=== PATIENT | female | born 1960 | race Caucasian/White ===

== ENCOUNTER 2024-09-29 01:39 | Inpatient (IN) | payer SELFPAY ==
[2024-09-29] MEDS ORDERED: NA CHLORIDE 0.9% 1,000 ML ONE (02:10)
[2024-09-29] MEDS ORDERED: CEFTRIAXONE 1000 MG/VIAL ONE (02:10)
[2024-09-29] MEDS ORDERED: NA CHLORIDE 0.9% 50 ML ONE (02:10)
[2024-09-29 02:21] LABS: Absolute Basophils 0.1 K/uL (0-0.5); Absolute Eosinophils 0.2 K/uL (0-0.5); Absolute Lymphocytes (CBC) 2.8 K/uL (0.7-4.9); Absolute Monocytes 0.7 K/uL (0.1-1.3); Absolute Neutrophil 6.6 K/uL (1.8-8.0); Basophils % 1.1 % (0-1.3); Eosinophils % 1.6 % (0-4.4); Hematocrit 41.4 % (36.0-45.0); Hemoglobin 13.5 g/dL (12.0-15.0); Lymphocytes % 27.2 % (15.3-44.8); MCH 29.7 pg (27.0-35.0); MCHC 32.7 g/dL (32.0-36.0); MCV 90.8 fL (80-100); MPV 8.7 fL (7.6-11.3); Monocytes % 6.6 % (3.3-12.3); Neutrophils % 63.5 % (41.7-73.7); Nucleated Red Blood Cells % 0.1 % (0-0); Platelets 280 thou/uL (152-406); RBC Red Blood Cell Count 4.56 M/uL (3.86-4.86); Red Cell Distribution Width 17.3 % (12.1-15.2)
[2024-09-29 02:23] LABS: PT Prothrombin Time 11.6 SECONDS (9.4-12.5); PTT, Activated Partial Thromb 28.6 SECONDS (24.3-36.9); Protime INR 1.04
[2024-09-29 02:30] LABS: SARS-CoV-2 Antigen CONTROL BLUE LINE VIS/BG OK; SARS-CoV-2 Antigen Rapid Res Negative (Negative)
[2024-09-29 02:36] LABS: Albumin 2.8 g/dL (3.4-5.0); Albumin/Globulin Ratio 0.8 (1.1-1.8); Anion Gap 11.2 mEq/L (5.0-15.0); Bilirubin Total 0.6 mg/dL (0.2-1.0); Globulin 3.7 g/dL (2.3-3.5); Potassium 3.2 mEq/L (3.5-5.1); Protein, Total 6.5 g/dL (6.4-8.2)
--- NOTE | 2024-09-29 03:19 | ER ---
Nurse's Notes [facility] Name: Bertha Hendricks Age: 63 yrs Sex: Female : 1960 Arrival Date: 09/29/2024 Time: 01:39 Bed 3 Private MD: Diagnosis: Volume Overload;Dyspnea, unspecified Presentation: 09/29 01:46 Chief complaint: Patient states: shortness of breath x 1 week. Coronavirus screen: cp4 Client denies travel out of the [place] in the last 14 days. At this time, the client does not indicate any symptoms associated with coronavirus-19. Ebola Screen: Patient negative for fever greater than or equal to 101.5 degrees Fahrenheit, and additional compatible Ebola Virus Disease symptoms Patient denies exposure to infectious person. Patient denies travel to an Ebola-affected area in the 21 days before illness onset. No symptoms or risks identified at this time. Initial Sepsis Screen: Does the patient meet any 2 criteria? RR > 20 per min. HR > 90 bpm. Yes Does the patient have a suspected source of infection? No. Patient's initial sepsis screen is negative. Risk Assessment: Do you want to hurt yourself or someone else? Patient reports no desire to harm self or others. Onset of symptoms was September 21, 2024. 01:46 Method Of Arrival: Wheelchair cp4 01:46 Acuity: ALEJANDRO 2 cp4 Triage Assessment: 01:49 General: Appears distressed, uncomfortable, Behavior is calm, cooperative, appropriate cp4 for age. Pain: Denies pain. EENT: No signs and/or symptoms were reported regarding the EENT system. Neuro: Level of Consciousness is awake, alert, obeys commands, Oriented to person, place, time, situation. Cardiovascular: Patient's skin is warm and dry. Rhythm is sinus tachycardia. Respiratory: Reports shortness of breath at rest since 1 week Airway is patent Respiratory effort is labored, gasping, shallow, Breath sounds with crackles bilaterally. Onset: The symptoms/episode began/occurred 1 week ago, the patient has moderate shortness of breath. GI: No signs and/or symptoms were reported involving the gastrointestinal system. : No signs and/or symptoms were reported regarding the genitourinary system. Derm: No signs and/or symptoms reported regarding the dermatologic system. Musculoskeletal: No signs and/or symptoms reported regarding the musculoskeletal system. Historical: - Allergies: 01:49 No Known Allergies; cp4 - Immunization history:: Adult Immunizations unknown. - Infectious Disease History:: Denies. - Social history:: Smoking status: Patient reports the use of cigarette tobacco products, smokes one pack cigarettes per day. Screenin:53 [facility] ED Fall Risk Assessment (Adult) History of falling in the last 3 months, cp4 including since admission No falls in past 3 months (0 pts) Confusion or Disorientation No (0 pts) Intoxicated or Sedated No (0 pts) Impaired Gait No (0 pts) Mobility Assist Device Used No (0 pt) Altered Elimination No (0 pt) Score/Fall Risk Level 0 - 2 = Low Risk Oriented to surroundings, Maintained a safe environment, Assessed \T\ reinforced patient's understanding of fall precautions, Hourly rounding (assess needs \T\ fall precautionary measures) done. Abuse screen: Denies threats or abuse. Denies injuries from another. Nutritional screening: No deficits noted. Tuberculosis screening: No symptoms or risk factors identified. Assessment: 01:53 Reassessment: No changes from previously documented assessment. Cardiovascular: Reports cp4 shortness of breath, Denies chest pain, Patient's skin is warm and dry. Rhythm is sinus tachycardia. 03:00 Reassessment: Patient appears in no apparent distress at this time. Patient and/or cp4 family updated on plan of care and expected duration. Pain level reassessed. Patient is alert, oriented x 3, equal unlabored respirations, skin warm/dry/pink. 04:00 Reassessment: Patient appears in no apparent distress at this time. Patient and/or cp4 family updated on plan of care and expected duration. Pain level reassessed. Patient is alert, oriented x 3, equal unlabored respirations, skin warm/dry/pink. 05:00 Reassessment: Patient appears in no apparent distress at this time. Patient and/or cp4 family updated on plan of care and expected duration. Pain level reassessed. Patient is alert, oriented x 3, equal unlabored respirations, skin warm/dry/pink. Vital Signs: 01:46 BP 174 / 122; Pulse 133; Resp 44; Temp 97.1; Pulse Ox 98% ; Weight 43.09 kg; Height 5 cp4 ft. 6 in. ; Pain 0/10; 02:11 BP 158 / 113; Pulse 108; ec2 02:15 BP 147 / 105; Pulse 101; Resp 24; Pulse Ox 98% on 2 lpm NC; al5 02:30 BP 143 / 105; Pulse 104; Resp 22; Pulse Ox 98% on 2 lpm NC; al5 02:45 BP 143 / 102; Pulse 104; Resp 25; Pulse Ox 98% on 2 lpm NC; al5 02:57 BP 143 / 102; Pulse 103; ec2 03:00 BP 140 / 103; Pulse 97; Resp 25; Pulse Ox 99% on 2 lpm NC; al5 03:30 BP 160 / 104; Pulse 113; Resp 19; Pulse Ox 99% on 2 lpm NC; al5 04:00 BP 136 / 106; Pulse 104; Resp 20; Pulse Ox 98% on 2 lpm NC; al5 04:15 BP 141 / 98; Pulse 105; Resp 23; Pulse Ox 99% on 2 lpm NC; al5 04:30 BP 144 / 97; Pulse 105; Resp 25; Pulse Ox 98% on 2 lpm NC; al5 05:00 BP 142 / 102; Pulse 108; Resp 25; Pulse Ox 99% on 2 lpm NC; al5 05:30 BP 140 / 98; Pulse 104; Resp 22; Pulse Ox 97% on 2 lpm NC; al5 01:46 Body Mass Index 15.33 (43.09 kg, 167.64 cm) cp4 01:46 Pain Scale: Adult cp4 ED Course: 01:40 Patient arrived in ED. jj6 01:41 Xu Murillo MD is Attending Physician. ec2 01:45 Jia Daniel is Primary Nurse. cp4 01:49 Triage completed. cp4 01:49 Arm band placed on right wrist. Patient placed in an exam room, on a stretcher. cp4 01:53 Bed in low position. Call light in reach. Side rails up X2. cp4 01:53 No provider procedures requiring assistance completed. Inserted saline lock: 20 gauge cp4 in right antecubital area, using aseptic technique. Blood collected. Flushed with 10 mL NS. 01:56 Initial lab(s) drawn, by ED staff, sent to lab. First set of blood cultures drawn by ED cp4 staff, Second set of blood cultures drawn by ED staff. 02:00 Provided Education on: plan of care. al5 02:12 Chest Single View XRAY In Process Unspecified. EDMS 03:18 Tonio Parker MD is Hospitalizing Provider. ec2 04:40 Patient admitted, IV remains in place. al5 Administered Medications: 02:17 Drug: NS 0.9% IV 1000 ml IV at 1000 ml once; to be given as a bolus over 60 minutes cp4 Route: IV; Rate: 1000 ml; Site: right antecubital; 03:27 Follow up: IV Status: Completed infusion cp4 02:17 Drug: Rocephin IV 1 grams IV at calculated rate once; Given slow IV push per pharmacy cp4 instructions Route: IV; Rate: calculated rate; Site: right antecubital; 03:27 Follow up: IV Status: Completed infusion cp4 03:41 Drug: Potassium Chloride PO 40 mEq PO once Route: PO; cp4 04:41 Follow up: Response: No adverse reaction al5 03:41 Not Given (Patient Refused): potassium [id number] meq IV at calculated rate once; cp4 administer over 1-2 hours Medication: 01:53 VIS not applicable for this client. cp4 Outcome: 03:18 Decision to Hospitalize by Provider. ec2 06:58 Admitted to ER Hold. Please see [facility] for further documentation. cp4 06:58 Condition: stable 06:58 Instructed on the need for admit, 07:58 Patient left the ED. db Signatures: Dispatcher [employer] EDNJ Joyce Robertson jj6 Naina Mayorga RN RN db Xu Murillo MD MD ec2 Jia Daniel cp4 Soledad Anne RN RN al5 Corrections: (The following items were deleted from the chart) 01:49 01:49 PMHx: Anxiety; cp4 cp4
--- NOTE | 2024-09-29 03:19 | EDPHYS ---
Physician Documentation [facility] Name: Bertha Hendricks Age: 63 yrs Sex: Female : 1960 Arrival Date: 09/29/2024 Time: 01:39 Bed 3 Private MD: ED Physician Xu Murillo HPI: 09/29 02:15 This 63 yrs old Female presents to ER via Wheelchair with complaints of ec2 Breathing Difficulty. 02:15 Patient arrives today for shortness of breath. Patient reports that she has been having ec2 worsening cough and cold symptoms, states that she is a pack per day smoker. No diagnosis of COPD. Has been feeling unwell and progressively worse.. Historical: - Allergies: 01:49 No Known Allergies; cp4 - Immunization history:: Adult Immunizations unknown. - Infectious Disease History:: Denies. - Social history:: Smoking status: Patient reports the use of cigarette tobacco products, smokes one pack cigarettes per day. ROS: 02:16 Constitutional: as per hpi ec2 Exam: 02:16 Constitutional: GEN: NAD Head: atraumatic Eyes: EOMI Ears: External ears are ec2 normal. CV: Tachycardia LUNGS: Tachypnea ABD: non-distended SKIN: no evidence of rashes MSK: no evidence of trauma Vital Signs: 01:46 BP 174 / 122; Pulse 133; Resp 44; Temp 97.1; Pulse Ox 98% ; Weight 43.09 kg; Height 5 cp4 ft. 6 in. ; Pain 0/10; 02:11 BP 158 / 113; Pulse 108; ec2 02:15 BP 147 / 105; Pulse 101; Resp 24; Pulse Ox 98% on 2 lpm NC; al5 02:30 BP 143 / 105; Pulse 104; Resp 22; Pulse Ox 98% on 2 lpm NC; al5 02:45 BP 143 / 102; Pulse 104; Resp 25; Pulse Ox 98% on 2 lpm NC; al5 02:57 BP 143 / 102; Pulse 103; ec2 03:00 BP 140 / 103; Pulse 97; Resp 25; Pulse Ox 99% on 2 lpm NC; al5 03:30 BP 160 / 104; Pulse 113; Resp 19; Pulse Ox 99% on 2 lpm NC; al5 04:00 BP 136 / 106; Pulse 104; Resp 20; Pulse Ox 98% on 2 lpm NC; al5 04:15 BP 141 / 98; Pulse 105; Resp 23; Pulse Ox 99% on 2 lpm NC; al5 04:30 BP 144 / 97; Pulse 105; Resp 25; Pulse Ox 98% on 2 lpm NC; al5 05:00 BP 142 / 102; Pulse 108; Resp 25; Pulse Ox 99% on 2 lpm NC; al5 05:30 BP 140 / 98; Pulse 104; Resp 22; Pulse Ox 97% on 2 lpm NC; al5 01:46 Body Mass Index 15.33 (43.09 kg, 167.64 cm) cp4 01:46 Pain Scale: Adult cp4 MDM: 01:41 Medical Screening Exam initiated ec2 02:11 ED course: EKG independently reviewed and interpreted by me, shows sinus tachycardia, ec2 rate of 119, no acute ST segment elevations, intervals are nonactionable.. 02:16 Data reviewed: vital signs, nurses notes. ED course: Patient arrives today for ec2 evaluation of shortness of breath. Examination yields tachycardia and tachypnea. Will obtain a septic workup, empirically treat with ceftriaxone, crystalloid. Differential diagnoses include processes such as pneumonia, viral infection, COPD exacerbation. 02:37 ED course: Metabolic profile shows slight hypokalemia.. ec2 03:18 ED course: Metabolic profile shows hypokalemia. BNP elevated at 40,000. I suspect this ec2 is contributing to patient's reported shortness of breath. No documented history of CHF however patient does not regularly seek health care. Will admit for further cardiac workup, tachypnea, shortness of breath. Discussed with hospitalist, pending admission.. 09/29 01:45 Order name: Blood Culture Adult (2) ec2 09/29 01:45 Order name: CBC with Diff; Complete Time: 02:48 ec2 09/29 01:45 Order name: CMP; Complete Time: 02:36 ec2 09/29 01:45 Order name: Lactate w/ 2H reflex if indic.; Complete Time: 02:48 ec2 09/29 01:45 Order name: Protime (+inr); Complete Time: 02:36 ec2 09/29 01:45 Order name: Ptt, Activated; Complete Time: 02:36 ec2 09/29 01:45 Order name: Influenza Screen (a \T\ B); Complete Time: 02:36 ec2 09/29 01:45 Order name: SARS RAPID; Complete Time: 02:48 ec2 09/29 01:49 Order name: BNP; Complete Time: 03:15 ec2 09/29 02:21 Order name: Glucose, Ancillary Testing; Complete Time: 02:36 EDMS 09/29 05:39 Order name: CBC with Automated Diff EDMS 09/29 05:39 Order name: CBC with Automated Diff EDMS 09/29 05:39 Order name: Comprehensive Metabolic Panel EDMS 09/29 05:39 Order name: Comprehensive Metabolic Panel EDMS 09/29 01:45 Order name: Chest Single View XRAY; Complete Time: 05:08 ec2 09/29 05:39 Order name: Thorax Wo Con EDMS 09/29 05:39 Order name: Echo with Doppler EDMS 09/29 01:45 Order name: Accucheck; Complete Time: 02:03 ec2 09/29 01:45 Order name: Cardiac monitoring; Complete Time: 02:03 ec2 09/29 01:45 Order name: EKG - Nurse/Tech; Complete Time: 02:03 ec2 09/29 01:45 Order name: IV Saline Lock - Large Bore; Complete Time: 02:03 ec2 09/29 01:45 Order name: Labs collected and sent; Complete Time: 02:03 ec2 09/29 01:45 Order name: O2 Per Protocol; Complete Time: 02:03 ec2 09/29 01:45 Order name: O2 Sat Monitoring; Complete Time: 02:03 ec2 09/29 01:45 Order name: Vital Signs; Complete Time: 02:03 ec2 Administered Medications: 02:17 Drug: NS 0.9% IV 1000 ml IV at 1000 ml once; to be given as a bolus over 60 minutes cp4 Route: IV; Rate: 1000 ml; Site: right antecubital; 03:27 Follow up: IV Status: Completed infusion cp4 02:17 Drug: Rocephin IV 1 grams IV at calculated rate once; Given slow IV push per pharmacy cp4 instructions Route: IV; Rate: calculated rate; Site: right antecubital; 03:27 Follow up: IV Status: Completed infusion cp4 03:41 Drug: Potassium Chloride PO 40 mEq PO once Route: PO; cp4 04:41 Follow up: Response: No adverse reaction al5 03:41 Not Given (Patient Refused): potassium [id number] meq IV at calculated rate once; cp4 administer over 1-2 hours Disposition: 03:18 Critical Care:. ec2 Disposition Summary: 09/29/24 03:18 Hospitalization Ordered Notes: Provider: Tonio Parker ec2 Condition: Stable ec2 Problem: new ec2 Symptoms: have improved ec2 Bed/Room Type: Standard ec2 Hospitalization Status: Inpatient Admission(09/29/24 06:44) af3 Location: Telemetry/MedSurg (Inpatient)(09/29/24 06:44) af3 Room Assignment: 430(09/29/24 06:44) af3 Diagnosis - Volume Overload ec2 - Dyspnea, unspecified ec2 Forms: - Medication Reconciliation Form ec2 - SBAR form ec2 - Leadership Thank You Letter ec2 Critical care time excluding procedures: 03:18 Critical care time: Bedside Care: 30 minutes, Consultation: 5 minutes. Total time: 35 ec2 minutes Signatures: Dispatcher [employer] EDCA Melani Thorne RN RN vc1 Xu Murillo MD MD ec2 Jia Daniel cp4 Lien Cantu af3 Soledad Anne RN al5 Corrections: (The following items were deleted from the chart) 01:45 01:45 BLOOD CULTURE*+BA.LAB.BRZ ordered. EDCA EDMS 01:45 01:45 CBC+H.LAB.BRZ ordered. EDCA EDMS 01:45 01:45 COMPREHENSIVE METABOLIC PANEL+C.LAB.BRZ ordered. EDCA EDMS 01:45 01:45 LACTATE+C.LAB.BRZ ordered. EDCA EDMS 01:45 01:45 PROTIME (+INR)+COAG.LAB.BRZ ordered. EDMS EDMS 01:45 01:45 PTT, ACTIVATED+COAG.LAB.BRZ ordered. EDCA EDMS 01:45 01:45 Influenza Screen (A \T\ B)+BA.LAB.BRZ ordered. EDMS EDMS 01:45 01:45 SARS-COV-2 Antigen Rapid+I.LAB.BRZ ordered. EDCA EDMS 01:45 01:45 Chest Single View+RAD.RAD.BRZ ordered. EDCA EDMS 01:49 01:49 PMHx: Anxiety; cp4 cp4 03:52 03:18 Telemetry/MedSurg (Inpatient) ec2 vc1 03:52 03:18 ec2 vc1 06:44 03:18 Inpatient Admission ec2 af3 06:44 03:52 [facility] ER HOLD vc1 af3 06:44 03:52 ERHOLD- vc1 af3
[2024-09-29] MEDS ORDERED: POTASSIUM CL SA 10 MEQ TAB PO ONE (03:35)
[2024-09-29] MEDS ORDERED: NA CHLORIDE 0.9% 0 ML ONE (03:36)
[2024-09-29] MEDS ORDERED: KCL 20 MEQ/100 mL IVPB 0 ML IV ONE (03:36)
--- NOTE | 2024-09-29 03:41 | RAD REPORT ---
EXAM: XR Chest, 1 View CLINICAL HISTORY: COUGH TECHNIQUE: Frontal view of the chest. COMPARISON: No relevant prior studies available. FINDINGS: Lungs: Hyperinflation. Coarsened interstitial markings. Patchy bibasilar opacities. Pleural space: Small to moderate bilateral pleural effusions. No pneumothorax. Heart: Unremarkable. No cardiomegaly. Mediastinum: Unremarkable. Normal mediastinal contour. Bones/joints: Unremarkable. No acute fracture. Vasculature: Thoracic aortic atherosclerosis. IMPRESSION: Small to moderate bilateral pleural effusions are likely underlying consolidation (atelectasis and/or infiltrate). Electronically signed by: Monica Donovan MD 09/29/2024 03:30 AM [facility] Due to temporary technical issues with the PACS/YouTube reporting system, reports are being noemy d by the in-house radiologist without review as a courtesy to ensure prompt reporting the interpreting radiologist is fully responsible for the content of the report. Transcribed Date/Time: 09/29/2024 3:41 AM
[2024-09-29] MEDS: FUROSEMIDE 20 MG/ 2ML VIAL IV SCH (05:34)
[2024-09-29] MEDS ORDERED: ALBUTEROL 2.5 MG/3 ML NEB SOL NEB PRN (05:34)
--- NOTE | 2024-09-29 05:34 | P.HP ---
Certification for Inpatient With expected LOS: >2 Midnights Practitioner: I am a practitioner with admitting privileges, knowledge of patient current condition, hospital course, and medical plan of care. Services: Services provided to patient in accordance with Admission requirements found in Title 42 Section 412.3 of the Code of Federal Regulations Patient History Date of Service: 09/29/24 Reason for admission: Congestive heart failure possible underlying COPD hoarseness History of Present Illness: Patient is 63 years of age with no past medical history she does not see any physicians started having worsening dyspnea since Jessu progressively worse also complaining of a chronic cough she has been hoarse for the past 6 months has lower extremity edema and was admitted from the emergency room denies any fever or chills take any medication at home Allergies No Known Allergies Allergy (Verified 03/16/17 03:12) Home Medications: Albuterol Inhaler [Ventolin Inhaler*] 2 puff IH Q6H PRN #1 hfa.aer.ad 03/17/17 Cefuroxime [Ceftin] 250 mg PO BID #6 tab 03/17/17 Sumatriptan [Imitrex*] 25 mg PO Q2H PRN #30 tab 03/17/17 Topiramate [Topamax*] 25 mg PO BID #60 tab 03/17/17 - Past Medical/Surgical History Diabetic: No -: anxiety -: tubal ligation - Family History Father -: Cancer - Social History Smoking Status: Current every day smoker Alcohol use: No CD- Drugs: No Caffeine use: Yes Review of Systems 10-point ROS is otherwise unremarkable Physical Examination - Vital Signs Temperature: 97.1 F Blood Pressure: 143/102 Pulse: 103 Respirations: 14 Pulse Ox (%): 98 - Physical Exam General: Alert, Oriented x3 HEENT: Atraumatic Neck: Supple Respiratory: Clear to auscultation bilaterally, Diminished Cardiovascular: Regular rate/rhythm, Normal S1 S2, Edema Gastrointestinal: Normal bowel sounds, Soft and benign Musculoskeletal: No clubbing, Swelling Neurological: Normal speech, Normal strength at 5/5 x4 extr - Studies Laboratory Data (last 24 hrs) 09/29/24 09/29/24 09/29/24 01:56 01:56 01:56 WBC 10.40 Hgb 13.5 Hct 41.4 Plt Count 280 PT 11.6 INR 1.04 APTT 28.6 Sodium 139 Potassium 3.2 L BUN 17 Creatinine 0.90 Glucose 139 H Total Bilirubin 0.6 AST 29 ALT 56 Alkaline Phosphatase 102 Microbiology Data (last 24 hrs): 09/29/24 01:56 Nasopharnyx Influenza Type A Antigen Screen - Final 09/29/24 01:56 Nasopharnyx Influenza Type B Antigen Screen - Final Assessment and Plan - Problems (Diagnosis) (1) Congestive heart failure Current Visit: Yes Status: Acute Plan: Patient is 63 years of age with no prior medical history heavy smoker admitted with worsening dyspnea since Jesus lower extremity edema cough hoarseness for the past 6 months patient's BNP has been significantly elevated patient is also mildly hypokalemic pressure is elevated x-ray shows hyperinflation bilateral pleural effusions will admit patient for diuresis she will also need a CT scan of the chest bili underlying COPD patient on Lasix spironolactone echocardiogram ordered Qualifiers: Heart failure chronicity: unspecified (2) Hoarseness Current Visit: Yes Status: Acute Plan: Patient is been hoarse for the past 6 months will need a CT scan of the neck and chest patient to ENT evaluation (3) Epigastric pain Current Visit: Yes Status: Acute - Plan Has also been complaining of some epigastric discomfort for the past 1 to 2 days denies any dysphagia no prior history of peptic ulcer disease - Advance Directives Does patient have a Living Will: No Does patient have a Durable POA for Healthcare: No
[2024-09-29] MEDS: SPIRONOLACTONE 25 MG TABLET PO SCH (05:37)
[2024-09-29] MEDS: PANTOPRAZOLE 40MG TABLET PO SCH (05:40)
[2024-09-29] MEDS ORDERED: FUROSEMIDE 20 MG/ 2ML VIAL ONE (06:40)
[2024-09-29] MEDS ORDERED: SPIRONOLACTONE 25 MG TABLET ONE (06:45)
[2024-09-29] MEDS ORDERED: PANTOPRAZOLE 40MG TABLET PO ONE (06:49)
[2024-09-29] MEDS: IPRATROPIUM BROM 0.5MG/2.5ML NEB SCH (07:20)
[2024-09-29] MEDS ORDERED: IPRATROPIUM BROM 0.5MG/2.5ML ONE (07:29)
--- NOTE | 2024-09-29 08:38 | RAD REPORT ---
EXAMINATION: CT Thorax Wo Con CLINICAL INDICATION: Female, 63 years old. [facility] MAIN Hoarseness Y TECHNIQUE: Axial CT scan of the chest without intravenous contrast. Multiplanar reformats were genera thanh and reviewed. One or more of the following dose reduction techniques were used: Automated exposure control, adjustment of the mA and/or kV according patient size, and/or iterative reconstruct ion. Unless otherwise specified, incidental findings do not require dedicated imaging follow-up. COMPARISON: Chest radiograph of earlier the same day FINDINGS: LOWER NECK: Visualized thyroid gland and soft tissues are normal. LUNGS: Dependent segmental airspace opacities, with some fluid consolidation in the medial left lower lobe. Superimposed pneumonia would be difficult to exclude. [id number] centrilobular emphysematous changes seen throughout both lungs. Mixed reticular and groundglass airspace opacities. The eighth in the dependent upper aspect of the right upper lobe as well, could reflect atelectasis or mild pneumonitis. No worrisome nodules. PLEURA: Moderate layering pleural effusions, with underlying atelectasis. No pneumothorax. . MEDIASTINUM AND LYMPH NODES: Moderate cardiomegaly. Tortuosity of the thoracic aorta. Ectasia of the distal descending thoracic aorta measuring 4 cm in caliber. No mediastinal mass or fluid collection. Normal size mediastinal, hilar, and axillary lymph nodes. OSSEOUS STRUCTURES AND CHEST WALL: Intact. UPPER ABDOMEN: No significant abnormalities. IMPRESSION: Bilateral layering moderate pleural effusions. Underlying dependent atelectasis as well as confluent medial left lower lobe dependent airspace opaci ty, stable favoring atelectasis, although superimposed pneumonia would be difficult to exclude. Small region of mixed reticular and groundglass opacity in the dependent right upper lobe, with simil ar differential considerations as well. Moderate cardiomegaly. 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 Given the findings of pulmonary emphysematous changes mentioned above, please correlate clinically fo r a formal diagnosis of pulmonary emphysema. Pulmonary emphysema is considered an independent risk factor for lung cancer, consider evaluating the patient for a low dose CT lung cancer screening progr am.
[2024-09-29] MEDS: INFLUENZA VACCINE (for 6+ mo) 0.5 ML DOSE IMVAC ONE (10:00)
[2024-09-29] MEDS: LOSARTAN POTASSIUM 50 MG TABLET PO SCH (10:29)
[2024-09-29] MEDS: POTASSIUM 25 MEQ EFFERV TAB PO SCH (16:13)
--- NOTE | 2024-09-29 19:18 | P.PN ---
Date of Service: 09/29/24 Patient seen and examined. She is stable on 2 L oxygen by nasal cannula. Patient reports she has been short of breath for about 2 to 3 weeks. She reports recent flulike symptoms. Patient's voice hoarseness likely secondary to prior upper respiratory infection. Possible COPD exacerbation. CT chest result reviewed, patient likely has chronic lung disease/COPD. Plan: Continue bronchodilators Continue IV lasix Echocardiogram ordered. Wean oxygen as tolerated.
[2024-09-29] MEDS: GUAIFENESIN/DM 5 ML UCUP PO PRN (22:48)
[2024-09-30 06:25] LABS: Absolute Basophils 0.1 K/uL (0-0.5); Absolute Eosinophils 0.2 K/uL (0-0.5); Absolute Monocytes 0.7 K/uL (0.1-1.3); Absolute Neutrophil 6.3 K/uL (1.8-8.0); Eosinophils % 2.1 % (0-4.4); Hematocrit 37.9 % (36.0-45.0); Hemoglobin 12.6 g/dL (12.0-15.0); Lymphocytes % 21.7 % (15.3-44.8); MCH 30.2 pg (27.0-35.0); MCHC 33.3 g/dL (32.0-36.0); MCV 90.7 fL (80-100); MPV 8.4 fL (7.6-11.3); Monocytes % 7.6 % (3.3-12.3); Neutrophils % 67.6 % (41.7-73.7); Nucleated Red Blood Cells % 0.1 % (0-0); Platelets 237 thou/uL (152-406); RBC Red Blood Cell Count 4.18 M/uL (3.86-4.86); Red Cell Distribution Width 16.9 % (12.1-15.2)
[2024-09-30 06:42] LABS: Albumin 2.5 g/dL (3.4-5.0); Albumin/Globulin Ratio 0.8 (1.1-1.8); Bilirubin Total 0.4 mg/dL (0.2-1.0); Globulin 3.3 g/dL (2.3-3.5); Protein, Total 5.8 g/dL (6.4-8.2)
[2024-09-30] MEDS ORDERED: POTASSIUM 25 MEQ EFFERV TAB PO SCH (09:00)
[2024-09-30] MEDS: ENOXAPARIN 40 MG/0.4 ML SQ SCH (09:57)
--- NOTE | 2024-09-30 13:20 | P.DS ---
Admission Date: 09/29/24 Discharge Date: 09/30/24 Disposition: ROUTINE DISCHARGE Discharge Condition: GOOD Reason for Admission: Congestive heart failure possible underlying COPD hoarseness Brief History of Present Illness: Diagnosis Acute hypoxic respiratory failure 2/2 COPD with exacerbation Hoarseness Congestive heart failure Smoking abuse HPI 09/29/2024 Patient is 63 years of age with no past medical history she does not see any physicians started having worsening dyspnea since [place] progressively worse also complaining of a chronic cough she has been hoarse for the past 6 months has lower extremity edema and was admitted from the emergency room denies any fever or chills take any medication at home Hospital Course: Bertha presented with worsening dyspnea. Chest xray reveals bilateral pleural effusions and CT chest showing pulmonary emphysema. She tolerated IV lasix and was successfully weaned off supplemental oxygen, she was able to ambulate on RA with oxygen saturation of 91%. She reports not seeing a doctor and continues to smoke. Smoking cessation education provided. She will need to follow-up with Dr. Parker for outpatient ECHO and CT neck scan. On 09/30/2024, Bertha was seen on morning rounds and deemed medically stable for discharge home family support. Bertha was discharged with instructions to schedule follow-up appointments with PCP and Dr. Parker. Bertha was provided prescriptions for Aldactone, Atrovent, Cozaar, prednisone, Protonix, Robitussin, Lasix. Physical Exam General: Alert, Oriented x3, NAD HEENT: Atraumatic Neck: Supple Respiratory: Normal air movement, expiratory wheezes, on Room air Cardiovascular: Mild tachycardia, Normal S1 S2 present Gastrointestinal: Normal bowel sounds, Soft and benign on palpation Musculoskeletal: No clubbing Neurological: Normal speech, Normal strength at 5/5 x4 extr Vital Signs/Physical Exam: Temp Pulse Resp BP Pulse Ox 97.8 F 95 H 16 128/78 91 09/30/24 08:00 09/30/24 09:57 09/30/24 08:00 09/30/24 09:57 09/30/24 08:00 Laboratory Data at Discharge: WBC 9.40 thou/uL (4.3-10.9) 09/30/24 05:52 Hgb 12.6 g/dL (12.0-15.0) 09/30/24 05:52 Hct 37.9 % (36.0-45.0) 09/30/24 05:52 Plt Count 237 thou/uL (152-406) 09/30/24 05:52 PT 11.6 SECONDS (9.4-12.5) 09/29/24 01:56 INR 1.04 09/29/24 01:56 APTT 28.6 SECONDS (24.3-36.9) 09/29/24 01:56 Sodium 137 mEq/L (136-145) 09/30/24 05:52 Potassium 4.0 mEq/L (3.5-5.1) D 09/30/24 05:52 BUN 21 mg/dL (7-18) H 09/30/24 05:52 Creatinine 1.02 mg/dL (0.55-1.02) 09/30/24 05:52 Glucose 105 mg/dL (74-106) 09/30/24 05:52 Total Bilirubin 0.4 mg/dL (0.2-1.0) 09/30/24 05:52 AST 26 U/L (15-37) 09/30/24 05:52 ALT 43 U/L (13-56) 09/30/24 05:52 Alkaline Phosphatase 83 U/L (45-117) 09/30/24 05:52 Home Medications: Guaif/Dm [Robitussin Dm*] 10 ml PO Q6H PRN 14 Days #128 ml 09/30/24 Ipratropium [place] [Atrovent Hfa] 12.9 gm IH Q12H 10 Days #1 inhaler 09/30/24 Losartan Potassium [Cozaar*] 50 mg PO DAILY 30 Days #30 tab 09/30/24 Pantoprazole [Protonix Tab*] 40 mg PO DAILY 30 Days #30 tab 09/30/24 Spironolactone [Aldactone*] 25 mg PO BID 30 Days #60 tab 09/30/24 predniSONE [Deltasone] 20 mg PO DAILY 10 Days #10 tab 09/30/24 New Medications: Spironolactone [Aldactone*] 25 mg PO BID 30 Days #60 tab Ipratropium [place] [Atrovent Hfa] 12.9 gm IH Q12H 10 Days #1 inhaler Losartan Potassium [Cozaar*] 50 mg PO DAILY 30 Days #30 tab predniSONE [Deltasone] 20 mg PO DAILY 10 Days #10 tab Pantoprazole [Protonix Tab*] 40 mg PO DAILY 30 Days #30 tab Guaif/Dm [Robitussin Dm*] 10 ml PO Q6H PRN 14 Days #128 ml PRN Reason: Cough Physician Discharge Instructions: Treated for COPD/Emphysema flare up. Ambulated on room air with oxygen saturation at 91 % prior to discharge. 1. Please call and set up an appointment with a PCP for medical management 2. Please call and set up an appointment with Dr. Parker in 2-3 day ([facility]) -Starting new medications, Dr. Parker will make adjustments as needed -Starting blood pressure medications, please check your blood pressure twice a day and write the reading so the doctor can make adjustments -Starting a steroid, Dr. Parker will make adjustments as necessary 3. Continue a regular diet 4. Continue to stop smoking 5. no activity restrictions 6. Return to the ED if symptoms worsen New medications Robitussin 10 ml every 6 hours for cough Aldactone 25 mg twice daily for blood pressure losartan 50 mg daily for blood pressure Protonix 40 mg daily for heart burn atroven inhaler two puffs twice daily Prednisone 20 mg daily x 10 days steroid Diet: Regular Activity: Ad jhonatan Followup: Tonio Parker MD [ACTIVE - CAN ADMIT] - NONE,NONE [Primary Care Provider] -
--- NOTE | 2024-10-01 10:49 | EKG ---
Test Date: 2024-09-29 Test Time: 01:49:32 Dehydration Plant Operator: CARLOS MEASUREMENT RESULTS: Intervals: Rate: 119 WV: 142 QRSD: 90 QT: 332 QTc: 467 [place]: P: 59 WV: 142 QRS: -33 T: 102 INTERPRETIVE STATEMENTS: Sinus tachycardia Possible Left atrial enlargement Left axis deviation Septal infarct, age undetermined Abnormal ECG No previous ECG available for comparison Electronically Signed On 10-01-24 10:49:26 POWER DIGGER OPERATOR by Elvin Estes
[2024-10-02 15:04] VITALS: O2SAT 92
[2024-10-02 15:05] VITALS: BMI 15.8
[2024-10-02 15:08] VITALS: BP 127/83; TEMP 97.8
== END 2024-09-30 16:30 | disposition home or self-care (01) | DRG 190 ==
LOC: ER 01:39 → ERHOLD 05:34 → 4TH 07:59
PROVIDERS: ADMIT Internal Medicine Sleep Medicine; ATTEND Internal Medicine
DX: J44.1 Chronic obstructive pulmonary disease with (acute) exacerbation (principal); J96.01 Acute respiratory failure with hypoxia; I50.9 Heart failure, unspecified; J43.8 Other emphysema; E87.6 Hypokalemia; F17.210 Nicotine dependence, cigarettes, uncomplicated; R49.0 Dysphonia; R10.9 Unspecified abdominal pain; Z11.52 Encounter for screening for COVID-19; Z79.899 Other long term (current) drug therapy; Z79.52 Long term (current) use of systemic steroids
CPT/HCPCS: 36415; 71045; 71250; 80053; 82947; 83605; 83880; 85025; 85610; 85730; 87040; 87804; 87811; 93005; 94640; 94760; 96365; 99285; J0696; J1650; J1940; J3480; J7030; J7040; J7644